=== PATIENT | female | born 2000 | race Caucasian/White ===

== ENCOUNTER 2023-01-02 19:50 | Emergency (ER) | payer SELFPAY ==
[~2023-01-02] VITALS: Ht 147.3 cm; Wt 105.5 kg
[2023-01-02 19:55] VITALS: BP 147/60; TEMP 98; O2SAT 94
[2023-01-02] MEDS ORDERED: AUGMENTIN 875 MG TAB PO ONE (21:00)
[2023-01-02] MEDS ORDERED: FLON1SPR NARES (21:09)
[2023-01-02] MEDS ORDERED: AMOX875T2 PO (21:09)
== END 2023-01-02 21:23 | disposition home or self-care (01) ==
LOC: M ED 19:50
DX: J01.90 Acute sinusitis, unspecified (principal)

== ENCOUNTER → 2024-07-11 | Outpatient (CLI) | payer OTHER ==
[~2024-07-11] MED LIST: AMOX875T2 PO; FLON1SPR NARES
[2024-07-11 17:51] LABS: HEMOGLOBIN A1c 5.1 % (4.0-6.0)
[2024-07-11 18:14] LABS: ALBUMIN 3.6 G/DL (3.2-5.2); ALKALINE PHOSPHATASE 100 U/L (35-104); ALT/SGPT 39 U/L (7.0-40); AST/SGOT 17 U/L (<34); BILIRUBIN,TOTAL 0.2 MG/DL (0.3-1.2); BLOOD UREA NITROGEN 11 MG/DL (9-23); CALCIUM LEVEL 9.4 MG/DL (8.5-10.1); CARBON DIOXIDE LEVEL 27 MMOL/L (20-31); CHLORIDE LEVEL 104 MMOL/L (98-107); CHOLESTEROL LEVEL 164 MG/DL (<200); CREATININE FOR GFR 0.64 MG/DL (0.55-1.30); GLOMERULAR FILTRATION RATE > 90.0 (>60); GLUCOSE, FASTING 111 MG/DL (60-100); HDL CHOLESTEROL 46.8 MG/DL (>40); NON-HDL-C 117.2 MG/DL; POTASSIUM SERUM 4.1 MMOL/L (3.5-5.1); SODIUM LEVEL 140 MMOL/L (136-145); TOTAL PROTEIN 6.7 G/DL (5.7-8.2); TRIGLYCERIDES LEVEL 116 MG/DL (<150)
[2024-07-11 18:17] LABS: THYROID STIMULATING HORMONE 2.175 uIU/ML (0.55-4.78); TOTAL 25(OH) VITAMIN D 8.7 NG/ML (20.0-100.0)
[2024-07-11 18:48] LABS: HIV 1&2 SCREEN NEGATIVE (NEGATIVE)
[2024-07-11 18:55] LABS: HEPATITIS C VIRUS ABY INDEX 0.02 INDEX (<0.8)
== END ==
LOC: M LAB 16:55
PROVIDERS: ATTEND Physician Assistant
DX: Z11.9 Encounter for screening for infectious and parasitic diseases, unspecified (principal)